=== PATIENT | female | born 1995 | race Caucasian/White ===

== ENCOUNTER 2016-09-17 15:26 | Emergency (ER) | payer SELFPAY ==
[~2016-09-17] VITALS: Ht 172.7 cm; Wt 58.0 kg
[2016-09-17 15:27] VITALS: BP 112/68; PULSE 77; RESP 12; TEMP 98.9; O2SAT 99
== END 2016-09-17 17:25 | disposition left against medical advice (07) ==
LOC: NEPB 17:20
DX: R68.89 Other general symptoms and signs (principal)
CPT/HCPCS: 99281

== ENCOUNTER 2017-02-11 11:17 | Emergency (ER) | payer BC ==
[2017-02-11 11:19] VITALS: BP 107/60; PULSE 67; RESP 20; TEMP 98.3; O2SAT 100
[2017-02-11 12:41] LABS: BLOOD, URINE NEG (NEG); COMMENT (UR) CULT NOT INDICATED; CULTURE IF INDICATED CULT NOT INDICATED; GLUCOSE,URINE NEG (NEG); KETONE, URINE TRACE mg/dL (NEG); MUCUS URINE MANY /lpf (OCC); NITRITE,URINE NEG (NEG); SQUAMOUS EPITHELIAL CELL URINE 3 /hpf (0-5); URINE COLOR YELLOW (YELLW/STRAW)
--- NOTE | 2017-02-11 13:22 | PD ---
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 The patient states that 3 weeks ago she had similar symptoms and was diagnosed with gonorrhea and treated. States that her partner was also treated however they did have sexual intercourse the day he was treated for gonorrhea and she thinks that she is reinfected. She also states that 2 weeks ago she had an elective , at that time was 6 weeks . States that she did have heavy vaginal bleeding for about 10 days that has since resolved. She denies any fever, chills, nausea, vomiting, vaginal bleeding, lightheadedness, dizziness. Denies any prior abdominal surgeries. No other complaints. PFSH Past Medical History Immunizations Current: Yes Social History Alcohol Use: No Tobacco Use: No Substance Use: No Allergies-Medications (Allergen,Severity, Reaction): Coded Allergies: No Known Allergies (Unverified , 07/04/16) Reported Meds & Prescriptions Reported Meds & Active Scripts Active Doxycycline Hyclate 100 Mg Cap 100 Mg PO BID 7 Days Review of Systems Except as stated in HPI: all other systems reviewed are Neg Physical Exam Narrative GENERAL: Well-nourished and well-developed pleasant female patient in no acute distress who is nontoxic appearing. SKIN: Warm and dry. HEAD: Normocephalic and atraumatic. EYES: No injection, drainage, or hyphema noted. PERRLA. EOMI. ENT: No nasal drainage noted. Oropharynx is clear. NECK: Supple and the trachea is midline. CARDIOVASCULAR: Regular rate and rhythm. RESPIRATORY: Breath sounds are equal bilaterally with no accessory muscle use, wheezing, rhonchi, or crackles. GASTROINTESTINAL: Mild suprapubic tenderness to palpation. No rebound tenderness or guarding. Abdomen is soft and nondistended. GENITOURINARY: Normal external genitalia without lesions or erythema. Vaginal vault with thick white discharge. Cervical os was closed. No cervical motion tenderness. Uterus nontender and nonenlarged. Bilateral adnexa nontender without masses. Performed in the presence of Liliya KENNEY. MUSCULOSKELETAL: No obvious deformities, swelling, cyanosis, or ecchymosis is present throughout the upper and lower extremities. Patient has full range of motion without any signs of neurovascular compromise. NEUROLOGICAL: Awake, alert, and oriented. Normal speech and gait. Cranial nerves are grossly intact. Data Data Last Documented VS Vital Signs Date Time Temp Pulse Resp B/P Pulse Ox O2 Delivery O2 Flow Rate FiO2 02/11/17 11:19 98.3 67 20 107/60 100 Room Air Orders Urinalysis - C+S If Indicated (02/11/17 11:37) Ed Urine Pregnancytest Poc (02/11/17 11:37) Beta Hcg (Quant/Titer) (02/11/17 13:20) Complete Blood Count With Diff (02/11/17 13:20) Comprehensive Metabolic Panel (02/11/17 13:20) Gc And Chlamydia Pcr (02/11/17 13:20) Wet Prep Profile (02/11/17 13:20) Iv Access Insert/Monitor (02/11/17 13:20) Ceftriaxone Inj (Rocephin Inj) (02/11/17 13:30) Sodium Chloride 0.9% Flush (Ns Flush) (02/11/17 13:30) Azithromycin (Zithromax) (02/11/17 13:30) Us Pelvis (Ques Pr/Ect)W Trans (02/11/17 ) Misoprostol (Cytotec) (02/11/17 15:30) Labs Laboratory Tests Test 02/11/17 02/11/17 02/11/17 11:45 13:45 14:20 Urine Color YELLOW Urine Turbidity CLEAR Urine pH 6.0 Urine Specific [place] 1.035 Urine Protein 30 mg/dL Urine Glucose (UA) NEG mg/dL Urine Ketones TRACE mg/dL Urine Occult Blood NEG Urine Nitrite NEG Urine Bilirubin NEG Urine Urobilinogen 2.0 MG/DL Urine Leukocyte Esterase TRACE Urine RBC 1 /hpf Urine WBC 3 /hpf Urine Squamous Epithelial 3 /hpf Cells Urine Mucus MANY /lpf Microscopic Urinalysis Comment CULT NOT INDICATED White Blood Count 4.6 TH/MM3 Red Blood Count 4.40 MIL/MM3 Hemoglobin 11.4 GM/DL Hematocrit 35.4 % Mean Corpuscular Volume 80.4 FL Mean Corpuscular Hemoglobin 25.9 PG Mean Corpuscular Hemoglobin 32.3 % Concent Red Cell Distribution Width 14.9 % Platelet Count 227 TH/MM3 Mean Platelet Volume 8.9 FL Neutrophils (%) (Auto) 55.5 % Lymphocytes (%) (Auto) 32.2 % Monocytes (%) (Auto) 8.1 % Eosinophils (%) (Auto) 3.3 % Basophils (%) (Auto) 0.9 % Neutrophils # (Auto) 2.6 TH/MM3 Lymphocytes # (Auto) 1.5 TH/MM3 Monocytes # (Auto) 0.4 TH/MM3 Eosinophils # (Auto) 0.2 TH/MM3 Basophils # (Auto) 0.0 TH/MM3 CBC Comment DIFF FINAL Differential Comment Sodium Level 138 MEQ/L Potassium Level 4.2 MEQ/L Chloride Level 106 MEQ/L Carbon Dioxide Level 24.4 MEQ/L Anion Gap 8 MEQ/L Blood Urea Nitrogen 8 MG/DL Creatinine 0.59 MG/DL Estimat Glomerular Filtration 129 ML/MIN Rate Random Glucose 80 MG/DL Calcium Level 8.9 MG/DL Total Bilirubin 0.3 MG/DL Aspartate Amino Transf 15 U/L (AST/SGOT) Alanine Aminotransferase 33 U/L (ALT/SGPT) Alkaline Phosphatase 35 U/L Total Protein 7.4 GM/DL Albumin 3.5 GM/DL Human Chorionic Gonadotropin, 123 MIU/ML Quant Clue Cells (Wet Prep) NONE SEEN Vaginal Trichomonas (Wet Prep) NONE SEEN Vaginal Yeast (Wet Prep) NONE SEEN MDM Medical Decision Making Medical Screen Exam Complete: Yes Emergency Medical Condition: Yes Differential Diagnosis STI versus cystitis versus retained products of conception versus cervicitis Narrative Course 21-year-old female presents to the emergency department for evaluation of lower abdominal pain, hematuria and vaginal discharge. Patient is afebrile, vital signs are stable. She does have some suprapubic tenderness to palpation but no peritoneal signs. IV access is obtained, labs 7 drawn and sent. Patient is placed on cardiac telemetry and pulse oximetry monitoring. She was recently treated for gonorrhea however resume sexual intercourse with her partner before treatment was complete and likely is reinfected. She is given 1 g of Rocephin IV and Zithromax 1 g orally. ED urine test is positive, she had an elective 2 weeks ago. CBC is unremarkable. CMP is unremarkable. Beta-HCG is 123. Urinalysis shows 30 protein, trace ketones, trace leukocyte esterase, many mucus. Wet prep is negative. Pelvic ultrasound shows no intrauterine gestation. There is a thickened endometrial stripe with focal heterogeneity and thickening within the uterine fundus. A small area of retained products of conception cannot be excluded. No adnexal masses. After discussion with OB hospitalist on-call the patient is administered 600 g of misoprostol now here in the ED. She'll be discharged with a prescription for doxycycline. Discussed supportive care with the patient. She is instructed to follow-up as an outpatient with her HISTOLOGIC AIDE. I discussed the case with my attending physician Dr. Griffin who is aware of the patients history, physical examination findings, and treatment plan. Physician Communication Physician Communication I spoke with Dr. Laboy OB hospitalist regarding the patient's beta hcg and US reading possible retained products of conception. She is aware the patient had a recent elective with oral medications. Based on US and beta hcg she recommends giving the patient Misoprostol 600 mcg once here in the ED and discharge with Doxycycline. Diagnosis Primary Impression: Pelvic pain in female Additional Impressions: STI (sexually transmitted infection) Retained products of conception following Referrals: Cdl Service Technician Patient Instructions: General Instructions, Pelvic Pain in Women (ED), Sexually Transmitted Diseases (ED) Additional Instructions: No sexual intercourse for 1 week. Take medications as prescribed with food and a full glass of water. Follow-up with your OBGYN. Return to the ED for any acute worsening of symptoms. Med/Other Pt SpecificInfo: Prescription(s) given Scripts Doxycycline Hyclate 100 Mg [id number] Mg PO BID 7 Days Ref 0 Prov:Hannah Griffin MD 02/11/17 Disposition: 01 DISCHARGE HOME Condition: Stable Ruthei Sahu Feb 11, 2017 13:22
[2017-02-11] MEDS ORDERED: cefTRIAXone INJ 1,000 MG in SODIUM CHLORIDE 0.9% INJ 100 ML IV ONE (13:30)
[2017-02-11] MEDS ORDERED: AZITHROMYCIN 250 MG TAB PO ONE (13:30)
[2017-02-11] MEDS ORDERED: SODIUM CHLORIDE 0.9% FLUSH 10 ML FLUSH IVF PRN (13:30)
[2017-02-11 14:10] LABS: AUTOMATED NEUTROPHIL # 2.6 TH/MM3 (1.8-7.7); BASOPHIL % 0.9 % (0.0-2.0); EOSINOPHIL # 0.2 TH/MM3 (0-0.4); EOSINOPHIL % 3.3 % (0.0-4.0); HEMATOCRIT 35.4 % (35.0-46.0); HEMO FLAGS DIFF FINAL; LYMPH % 32.2 % (9.0-44.0); LYMPHOCYTE # 1.5 TH/MM3 (1.0-4.8); MEAN CELL VOLUME 80.4 FL (80.0-100.0); MEAN CORPUSCULAR HEMOGLOBIN 25.9 PG (27.0-34.0); MEAN CORPUSCULAR HGB CONC 32.3 % (32.0-36.0); MONO % 8.1 % (0.0-8.0); NEUT % 55.5 % (16.0-70.0); PLATELET COUNT 227 TH/MM3 (150-450); RED CELL DISTRIBUTION WIDTH 14.9 % (11.6-17.2); WHITE BLOOD COUNT 4.6 TH/MM3 (4.0-11.0)
[2017-02-11 14:22] LABS: ANION GAP 8 MEQ/L (5-15); AST (GOT) 15 U/L (15-37); BICARBONATE 24.4 MEQ/L (21.0-32.0); BLOOD UREA NITROGEN 8 MG/DL (7-18); CHLORIDE 106 MEQ/L (98-107); GLOMERULAR FILTRATION RATE 129 ML/MIN (>89); POTASSIUM 4.2 MEQ/L (3.5-5.1); SODIUM (NA) 138 MEQ/L (136-145)
[2017-02-11 14:23] LABS: ALT (GPT) 33 U/L (10-53)
[2017-02-11 14:27] LABS: ALKALINE PHOSPHATASE 35 U/L (45-117); BETA HCG QUANT 123 MIU/ML (0-5); TOTAL BILIRUBIN ADULT 0.3 MG/DL (0.2-1.0)
--- NOTE | 2017-02-11 15:07 | RADRPT ---
EXAM DATE/TIME: 02/11/2017 13:54 [facility] COMPARISON: No previous studies available for comparison. INDICATIONS : Pelvic pain. LAB(S): Beta-hCG: MEDICAL HISTORY : . SURGICAL HISTORY : . ENCOUNTER: Initial ACUITY: 2 weeks PAIN SCORE: 4/10 LOCATION: Bilateral pelvis MEASUREMENTS: UTERUS: 9.5 x 5.0 x 7.6 cm ENDOMETRIAL STRIPE: >20 mm RIGHT OVARY: 3.5 x 1.9 x 1.9 cm LEFT OVARY: 3.1 x 1.5 x 2.1 cm FREE FLUID: No CROWN RUMP LENGTH: Not visualized. = WKS DAYS FHR: Not visualized. BPM FINDINGS: UTERUS: The myometrium is heterogeneous. There is heterogeneity to the endometrial stripe as well. A focal ar ea of heterogeneity with hyperemia is seen within the uterine fundus. This measures 12 x 12 x 13 mm. No free fluid within the endometrial canal. A 12 mm simple cyst is seen involving the endometrium wit hin the lower uterine segment. No discrete parts observed. RIGHT OVARY: Ovary contains no mass or significant cystic lesion. LEFT OVARY: Ovary contains no mass or significant cystic lesion. MISCELLANEOUS: No free fluid. CONCLUSION: 1. No intrauterine gestation is observed. There is a thickened endometrial stripe with focal heteroge neity and thickening within the uterine fundus. I cannot exclude a small area of retained products of conception. 2. No adnexal masses. Dagoberto Zimmerman Jr., MD on February 11, 2017 at 15:01 Board Certified Radiologist. This report was verified electronically.
[2017-02-11] MEDS ORDERED: MISOPROSTOL 200 MCG TAB PO ONE (15:30)
[2017-02-11] MEDS ORDERED: DOXY100C PO (15:32)
[2017-02-11 16:53] LABS: CHLAMYDIA PCR NOT DETECTED (NOT DETECT); NEISSERIA PCR NOT DETECTED (NOT DETECT)
== END 2017-02-11 16:19 | disposition home or self-care (01) ==
LOC: NEPD 11:17
DX: R10.2 Pelvic and perineal pain (principal); A64 Unspecified sexually transmitted disease; O03.4 Incomplete spontaneous abortion without complication
CPT/HCPCS: 76700; 76817; 80053; 81001; 84702; 84703; 85025; 87210; 87491; 87591; 96374; 99285; J0696

== ENCOUNTER 2017-05-11 00:38 | Emergency (ER) | payer BC ==
[~2017-05-11] VITALS: Ht 172.7 cm; Wt 68.0 kg
[~2017-05-11 00:38] MED LIST: DOXY100C PO
[2017-05-11 00:39] VITALS: BP 129/80; PULSE 87; RESP 16; TEMP 98.4; O2SAT 100
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
[2017-05-11] MEDS ORDERED: oxyCODONE/ACETAMINOPHEN 5 MG/325 MG TAB PO ONE (01:15)
== END 2017-05-11 02:29 | disposition left against medical advice (07) ==
LOC: NEPD 00:38
DX: H57.12 Ocular pain, left eye (principal); H53.8 Other visual disturbances; R51 Headache; Y04.2XXA Assault by strike against or bumped into by another person, initial encounter; Z53.20 Procedure and treatment not carried out because of patient's decision for unspecified reasons
CPT/HCPCS: 99281

== ENCOUNTER 2017-09-23 19:57 | Emergency (ER) | payer BC ==
[2017-09-23 19:58] VITALS: BP 113/59; PULSE 71; RESP 16; TEMP 98.7; O2SAT 99
[2017-09-23 21:17] LABS: AUTOMATED NEUTROPHIL # 2.5 TH/MM3 (1.8-7.7); BASOPHIL % 0.8 % (0.0-2.0); EOSINOPHIL # 0.1 TH/MM3 (0-0.4); EOSINOPHIL % 2.2 % (0.0-4.0); HEMATOCRIT 36.7 % (35.0-46.0); HEMOGLOBIN 12.1 GM/DL (11.6-15.3); LYMPH % 43.7 % (9.0-44.0); LYMPHOCYTE # 2.4 TH/MM3 (1.0-4.8); MEAN CORPUSCULAR HEMOGLOBIN 26.7 PG (27.0-34.0); MEAN PLATELET VOLUME 9.3 FL (7.0-11.0); MONO % 7.5 % (0.0-8.0); MONOCYTE # 0.4 TH/MM3 (0-0.9); NEUT % 45.8 % (16.0-70.0); PLATELET COUNT 215 TH/MM3 (150-450); RED BLOOD COUNT 4.53 MIL/MM3 (4.00-5.30); RED CELL DISTRIBUTION WIDTH 13.9 % (11.6-17.2); WHITE BLOOD COUNT 5.4 TH/MM3 (4.0-11.0)
[2017-09-23 21:30] LABS: BICARBONATE 25.3 MEQ/L (21.0-32.0); CALCIUM 8.6 MG/DL (8.5-10.1); CREATININE 0.64 MG/DL (0.50-1.00)
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
[2017-09-23 23:05] LABS: BILIRUBIN, URINE NEG (NEG); GLUCOSE,URINE NEG (NEG); KETONE, URINE NEG (NEG); NITRITE,URINE NEG (NEG); URINE COLOR YELLOW (YELLW/STRAW); URINE LEUKOCYTE ESTERASE NEG (NEG)
[2017-09-23 23:06] LABS: BLOOD, URINE TRACE (NEG)
[2017-09-23 23:13] LABS: MUCUS URINE MANY /lpf (OCC); RENAL EPITHELIAL CELLS <1 /hpf; SQUAMOUS EPITHELIAL CELL URINE 12 /hpf (0-5)
--- NOTE | 2017-09-23 23:22 | RADRPT ---
EXAM DATE/TIME: 09/23/2017 22:34 [facility] COMPARISON: No previous studies available for comparison. INDICATIONS : Bleeding with . LAB(S): Beta-hC MEDICAL HISTORY : . . SURGICAL HISTORY : None. ENCOUNTER: Initial ACUITY: 1 day PAIN SCORE: 0/10 LOCATION: Bilateral pelvis MEASUREMENTS: UTERUS: 10.8 x 9.0 x 6.3 cm ENDOMETRIAL STRIPE: >20 mm RIGHT OVARY: 2.9 x 1.8 x 1.6 cm LEFT OVARY: 3.7 x 2.9 x 2.4 cm FREE FLUID: Yes Trace in posterior cul de sac. CROWN RUMP LENGTH: 0.5 cm = 6 WKS 1 DAYS FHR: 115 BPM FINDINGS: UTERUS: There is a single intrauterine present with crown-rump length corresponding to 6 week one d ay menstrual age. heart rate of 115 beats per minute was obtained. There is a small yolk sac. T here uterus is anteverted and there is a 4.3 x 4.3 x 3.2 cm solid isoechoic mass in the mid body cons istent with a leiomyoma. RIGHT OVARY: Ovary contains no mass or significant cystic lesion. LEFT OVARY: There is a small complex hypoechoic lesion measuring 2.8 x 2.6 x 2.6 cm. MISCELLANEOUS: No free fluid. Trace fluid is noted in the cul-de-sac. CONCLUSION: 1. Single early intrauterine corresponding to a 6 week one day menstrual age. 2. Leiomyoma in the body of the uterus which is anteverted. 3. Complex hypoechoic structure the left ovary likely representing a corpus luteal cyst. 4. Trace fluid in the cul-de-sac. Boaz Valladares MD on September 23, 2017 at 23:17 Board Certified Radiologist. This report was verified electronically.
== END 2017-09-23 23:46 | disposition home or self-care (01) ==
LOC: NEPD 19:57
DX: O20.0 Threatened abortion (principal); Z3A.01 Less than 8 weeks gestation of pregnancy
CPT/HCPCS: 76700; 80048; 81001; 84702; 85025; 86901